=== PATIENT | male | born 1975 | race Two or more races ===

== ENCOUNTER 2019-10-22 23:37 | Emergency (ER) | payer OTHER ==
[~2019-10-22] VITALS: Ht 175.3 cm; Wt 84.4 kg
[2019-10-23 00:42] LABS: Basophils # (auto) 0 10 ^3/uL (0-0.2); Eosinophils # (auto) 0.1 10 ^3/uL (0-0.8); Eosinophils % (auto) 1.5 % (0.0-7.0); Hematocrit 42.9 % (41.0-53.0); Hemoglobin 14.2 g/dL (13.5-17.5); Lymphocytes # (auto) 0.5 10 ^3/uL (0.4-5.4); Lymphocytes % (auto) 14.1 % (10.0-50.0); Mean Corpuscular Hemoglobin 34.2 pg (28.0-32.0); Mean Corpuscular Hgb Conc. 33.2 g/dL (32.0-36.0); Mean Corpuscular Volume 103.1 fL (80.0-100.0); Monocytes # (auto) 0.6 10 ^3/uL (0-1.3); Monocytes % (auto) 17.5 % (0.0-12.0); Neutrophils # (auto) 2.3 10 ^3/uL (1.6-8.6); Neutrophils % (auto) 65.9 % (37.0-80.0); Nucleated Red Blood Cells % 0.1 %; Platelet Count (auto) 121 10^3/uL (140-450); Red Blood Cells 4.16 10^6/uL (4.5-5.90); White Blood Cell 3.5 10^3/uL (4.4-10.8)
[2019-10-23 01:00] LABS: Albumin 4.4 g/dL (3.4-5.0); Anion Gap 10 (5-15); BUN/Creatinine Ratio 14.6; Blood Alcohol < 3.0 mg/dL (0-5); Blood Urea Nitrogen 12 mg/dL (7-18); Calcium 8.6 mg/dL (8.5-10.1); Carbon Dioxide 25 mmol/L (21-32); Chloride 104 mmol/L (98-107); GFR African American 133 mL/min; GFR Non-African American 110 mL/min; Glucose 92 mg/dL (74-106); Potassium 3.8 mmol/L (3.5-5.1); Sodium 139 mmol/L (136-145)
[2019-10-23 01:03] LABS: Alanine Aminotransferase 282 U/L (16-61); Alkaline Phosphatase 78 U/L (45-117); Aspartate Aminotransferase 211 U/L (15-37); Bilirubin, Total 0.9 mg/dL (0.2-1.0); Total Protein 8.1 g/dL (6.4-8.2)
[2019-10-23] MEDS ORDERED: LORazepam 0.5 MG TAB PO ONE (02:45)
[2019-10-23 04:00] VITALS: BP 118/74
== END 2019-10-23 04:35 | disposition home or self-care (01) ==
LOC: ER 23:41
DX: F10.239 Alcohol dependence with withdrawal, unspecified (principal); K70.30 Alcoholic cirrhosis of liver without ascites; Z88.0 Allergy status to penicillin
CPT/HCPCS: 36415; 80053; 80320; 85025

== ENCOUNTER 2023-02-27 08:01 | Emergency (ER) | payer OTHER ==
[~2023-02-27] VITALS: Ht 175.3 cm; Wt 84.2 kg
[2023-02-27 08:47] VITALS: BP 146/70; PULSE 79; RESP 17; TEMP 97.6; O2SAT 97
[2023-02-27] MEDS ORDERED: CEPH500C PO (09:31)
[2023-02-27] MEDS ORDERED: TETANUS-DIPTH-ACEL PERTUSSIS 0.5ML SYR Tdap IM ONE (09:45)
== END 2023-02-27 09:44 | disposition home or self-care (01) ==
LOC: ER 08:01
DX: S01.01XA Laceration without foreign body of scalp, initial encounter (principal); R51.9 Headache, unspecified; Z88.0 Allergy status to penicillin; X58.XXXA Exposure to other specified factors, initial encounter; Y93.89 Activity, other specified; Y92.89 Other specified places as the place of occurrence of the external cause; Y99.8 Other external cause status
CPT/HCPCS: 12004; 70450; 90471; 90715

== ENCOUNTER 2023-03-09 07:02 | Emergency (ER) | payer OTHER ==
[~2023-03-09] VITALS: Ht 175.3 cm; Wt 83.6 kg
[~2023-03-09 07:02] MED LIST: CEPH500C PO
[2023-03-09 07:52] VITALS: BP 118/76; PULSE 64; RESP 64; TEMP 98.1; O2SAT 97
== END 2023-03-09 08:33 | disposition home or self-care (01) ==
LOC: ER 07:02
DX: S01.01XD Laceration without foreign body of scalp, subsequent encounter (principal); Z79.899 Other long term (current) drug therapy; Z88.0 Allergy status to penicillin; X58.XXXD Exposure to other specified factors, subsequent encounter

== ENCOUNTER 2023-08-13 07:03 | Emergency (ER) | payer OTHER ==
[~2023-08-13] VITALS: Ht 175.3 cm; Wt 88.6 kg
[2023-08-13 07:51] VITALS: BP 133/96; PULSE 70; RESP 19; TEMP 97.8; O2SAT 99
[2023-08-13] MEDS ORDERED: KETO2CRE4 TOP (07:56)
== END 2023-08-13 08:07 | disposition home or self-care (01) ==
LOC: ER 07:03
DX: B35.4 Tinea corporis (principal); Z88.0 Allergy status to penicillin

== ENCOUNTER 2024-02-18 19:46 | Emergency (ER) | payer OTHER ==
[~2024-02-18] VITALS: Ht 175.3 cm; Wt 88.0 kg
[~2024-02-18 19:46] MED LIST changes: +KETO2CRE4 TOP
[2024-02-18 20:12] VITALS: BP 149/99; PULSE 87; RESP 20; O2SAT 99
--- NOTE | 2024-02-18 21:08 | ED.PDOC ---
Back pain HPI HPI Comments 48y M who presents to the ED for chief compliant of lower back pain. Pt states he has been having lower back pain for the past 1 days. Pt states the pain is in his lower back, constant, non-radiating, with no associated exacerbating or relieving factors. Pt has no associated nausea,vomiting, diarrhea, dysuria, fever, chest pain or shortness of breath. Pt states he lifted couch on 2 days prior and states he has been having pain since. Pt otherwise denies any other symptoms at this time. Time Seen by MD: 21:03 Primary Care Provider: Unknown Reviewed Notes: Medications Allergies: Coded Allergies: Penicillins (Verified Allergy, Unknown, 10/23/19) Home Meds Active Scripts Ketoconazole (Ketoconazole) 2 % Cre, 1 APPLIC TOP BID, #30 GRAMS Prov:MAN FORMAN 08/13/23 Cephalexin Monohydrate (Cephalexin) 500 Mg Cap, 1 CAP PO QID, #32 CAP Prov:MAN FORMAN 02/27/23 Information Source: Patient Mode of Arrival: Ambulatory Brought in by: self Past Medical History PAST MEDICAL HISTORY: Denies Surgical History: Denies all surgeries Family History Family History: Reviewed,noncontributory to illness Social History Smoker: Non-Smoker Alcohol: Heavy Drugs: Denies Drug Use Lives In: Home Constitutional: denies: chills, diaphoresis, fatigue, fever, malaise, sweats, weakness, others EENTM: denies: blurred vision, double vision, ear bleeding, ear discharge, ear drainage, ear pain, ear ringing, eye pain, eye redness, hearing loss, mouth pain, mouth swelling, nasal discharge, nose bleeding, nose congestion, nose pain, photophobia, tearing, throat pain, throat swelling, voice changes, others Respiratory: denies: cough, hemoptysis, orthopnea, SOB at rest, shortness of breath, SOB with excertion, stridor, wheezing, others Cardiovascular: denies: chest pain, dizzy spells, diaphoresis, Dyspnea on exertion, edema, irregular heart beat, left arm pain, lightheadedness, palpitations, PND, syncope, others Gastrointestinal: denies: abdomen distended, abdominal pain, blood streaked bowels, constipated, diarrhea, dysphagia, difficulty swallowing, hematemesis, melena, nausea, poor appetite, poor fluid intake, rectal bleeding, rectal pain, vomiting, others Genitourinary: denies: burning, dysuria, flank pain, frequency, hematuria, incontinence, penile discharge, penile sore, pain, testicle pain, testicle swelling, urgency, others Neurological: denies: dizziness, fainting, headache, left sided numbness, left sided weakness, numbness, paresthesia, pre-existing deficit, right sided numbness, right sided weakness, seizure, speech problems, tingling, tremors, weakness, others Musculoskeletal: reports: back pain; denies: gout, joint pain, joint swelling, muscle pain, muscle stiffness, neck pain, others Integumetry: denies: bruises, change in color, change in hair/nails, dryness, laceration, lesions, lumps, rash, wounds, others Allergic/Immunocompromised: denies: Difficulty Healing, Frequent Infections, Hives, Itching, others Hematologic/Lymphatic: denies: anemia, blood clots, easy bleeding, easy bruising, swollen glands, others Endocrine: denies: excessive hunger, excessive sweating, excessive thirst, excessive urination, flushing, intolerance to cold, intolerance to heat, unexplained weight gain, unexplained weight loss, others Psychiatric: denies: anxiety, bipolar disorder, depression, hopeless, panic disorder, schizophrenia, sleepless, suicidal, others All Other Systems: Reviewed and Negative Physical Exam General Appearance: No Apparent Distress, Normal HEENT: Normal ENT Inspection, Pharynx Normal, TMs Normal Neck: Full Range of Motion, Non-Tender, Normal, Normal Inspection Respiratory: Chest Non-Tender, Lungs Clear, No Accessory Muscle Use, No Respiratory Distress, Normal Breath Sounds Cardiovascular: No Edema, No JVD, No Murmur, No Gallop, Normal Peripheral Pulses, Regular Rate/Rhythm Breast Exam: Deferred Gastrointestinal: No Organomegaly, Non Tender, No Pulsatile Mass, Normal Bowel Sounds, Soft Genitalia: Deferred Pelvic: Deferred Rectal: Deferred Extremities: Other (lower back point tenderness,L leg raise test does not improve symptoms) Musculoskeletal : Apperance: Normal Neurologic: Alert, [employer] II-XII nml as Tested, No Motor Deficits, Normal Affect, Normal Mood, No Sensory Deficits Cerebellar Function: Normal Reflexes: Normal Skin: Dry, Normal Color, Warm Lymphatic: No Adenopathy Was a procedure done? Was a procedure done?: No Back Pain Differential Dx Differential Diagnosis: Fracture, Musculoskeletal Pain, Pyelonephritis, Urolithiasis Other Differential Diagnosis lumbar radiculopathy lumbar strain, sciatica Time of 1ST Reevaluation: 21:35 Reevaluation 1ST: Unchanged Time of 2ND Reevaluation: 21:11 Reevaluation 2ND: Improved Patient Education/Counseling: Diagnosis, Treatment, Prognosis, Need For Follow Up Family Education/Counseling: No Family Present Departure 1 Departure Time of Disposition: 21:12 Impression: Primary Impression: Sciatica Qualified Codes: M54.32 - Sciatica, left side Disposition: HOME / SELF CARE / HOMELESS Condition: Good e-Prescriptions Ibuprofen Micronized (MOTRIN TABLET) 600 Mg Tb 600 MG PO TID PRN, #40 TAB *Black box warning-NSAIDS can increase risk of SC & hypertension, GI irritation, ulceration, bleed, perferation. Do not use post cardiac surgery. Use short duration/lowest effective dose. Prov: ALCIDES JOE MD 02/18/24 Cyclobenzaprine Hcl (Cyclobenzaprine Hcl) 10 Mg Tab 10 MG PO Q8HP PRN for 3 Days, #9 TAB Prov: ALCIDES JOE MD 02/18/24 Discharged With: Self Critical Care Note Critical Care Time?: No Stability Stability form required: No Heart Score Heart Score: Heart Score Response (Comments) Value History N/A 0 EKG N/A 0 Age N/A 0 Risk Factors N/A 0 Troponin N/A 0 Total 0 I personally scribed for ALCIDES JOE MD ([email or web address]) on 02/18/24 at 21:08. Electronically submitted by Carolina POTTER). ALCIDES JOE MD Feb 18, 2024 21:08
[2024-02-18] MEDS ORDERED: IBU600T PO (21:13)
[2024-02-18] MEDS ORDERED: CYCL-839 PO (21:13)
[2024-02-18] MEDS: KETOROLAC TROMETH 30 MG/ML 1ML VIAL IM ONE (22:31)
== END 2024-02-18 22:38 | disposition home or self-care (01) ==
LOC: ER 19:46
DX: M54.40 Lumbago with sciatica, unspecified side (principal); Z79.899 Other long term (current) drug therapy; Z88.0 Allergy status to penicillin
CPT/HCPCS: 96372; 99283; J1885

== ENCOUNTER 2024-09-14 18:36 | Emergency (ER) | payer OTHER ==
[~2024-09-14] VITALS: Ht 175.3 cm; Wt 85.4 kg
[~2024-09-14 18:36] MED LIST changes: +CYCL-839 PO; +IBU600T PO
[2024-09-14] MEDS: SODIUM CHLORIDE 0.9% 1,000 ML IVB ONE (19:45)
[2024-09-14] MEDS: LORazepam 2MG/ML-1ML VIAL IV ONE ×2 (19:46→19:47)
--- NOTE | 2024-09-14 19:48 | ED.PDOC ---
History of Present Illness HPI Comments 49 year old male with a Hx of Anxiety, and Heavy Alcohol Abuse was BIBA for the c/c of Alcohol Withdrawal symptoms. Pt states that his last drink was this past Wednesday, and has since had tremors with no alleviating factors at this time. Pt states that he is trying to quit after consistently having 6 hard liquor drinks daily for the past 17 years. Pt denies any ABD pain, CP, N/V/D, dizziness, or any other associated symptoms at this time. Chief Complaint: Withdrawal Time Seen by MD: 19:44 Primary Care Provider: ROWE Reviewed Notes: Nurses Notes, Medications, Allergies Allergies: Coded Allergies: Penicillins (Verified Allergy, Unknown, 10/23/19) Home Meds Active Scripts Multiple Vitamin (Multivitamins) Tab, 1 TAB PO DAILY for 90 Days, #90 TAB 3 Refills Prov:YANETH HERNANDEZ MD 09/14/24 Chlordiazepoxide Hcl (Librium) 25 Mg Cp, 25 MG GT Q6HP PRN, #30 CAP Prov:YANETH HERNANDEZ MD 09/14/24 Thiamine Hcl (VITAMIN B-1) 100 Mg Tb, 100 MG GT DAILY for 60 Days, #60 TAB Prov:YANETH HERNANDEZ MD 09/14/24 Ibuprofen Micronized (MOTRIN TABLET) 600 Mg Tb, 600 MG PO TID PRN, #40 TAB *Black box warning-NSAIDS can increase risk of IN & hypertension, GI irritation, ulceration, bleed, perferation. Do not use post cardiac surgery. Use short duration/lowest effective dose. Prov:ALCIDES JOE MD 02/18/24 Cyclobenzaprine Hcl (Cyclobenzaprine Hcl) 10 Mg Tab, 10 MG PO Q8HP PRN for 3 Days, #9 TAB Prov:ALCIDES JOE MD 02/18/24 Ketoconazole (Ketoconazole) 2 % Cre, 1 APPLIC TOP BID, #30 GRAMS Prov:MAN FORMAN 08/13/23 Cephalexin Monohydrate (Cephalexin) 500 Mg Cap, 1 CAP PO QID, #32 CAP Prov:MAN FORMAN 02/27/23 Information Source: Patient Mode of Arrival: Ambulatory Severity: Moderate Timing: Days Duration: Since onset, Days Prehospital treatment: None Past Medical History PAST MEDICAL HISTORY: Denies Surgical History: Denies all surgeries Family History Family History: Reviewed,noncontributory to illness Social History Smoker: Non-Smoker Alcohol: Heavy Drugs: Denies Drug Use Lives In: Home Constitutional: denies: chills, diaphoresis, fatigue, fever, malaise, sweats, weakness, others EENTM: denies: blurred vision, double vision, ear bleeding, ear discharge, ear drainage, ear pain, ear ringing, eye pain, eye redness, hearing loss, mouth pain, mouth swelling, nasal discharge, nose bleeding, nose congestion, nose pain, photophobia, tearing, throat pain, throat swelling, voice changes, others Respiratory: denies: cough, hemoptysis, orthopnea, SOB at rest, shortness of breath, SOB with excertion, stridor, wheezing, others Cardiovascular: denies: chest pain, dizzy spells, diaphoresis, Dyspnea on exertion, edema, irregular heart beat, left arm pain, lightheadedness, palpitations, PND, syncope, others Gastrointestinal: denies: abdomen distended, abdominal pain, blood streaked bowels, constipated, diarrhea, dysphagia, difficulty swallowing, hematemesis, melena, nausea, poor appetite, poor fluid intake, rectal bleeding, rectal pain, vomiting, others Genitourinary: denies: burning, dysuria, flank pain, frequency, hematuria, incontinence, penile discharge, penile sore, pain, testicle pain, testicle swelling, urgency, others Neurological: denies: dizziness, fainting, headache, left sided numbness, left sided weakness, numbness, paresthesia, pre-existing deficit, right sided numbness, right sided weakness, seizure, speech problems, tingling, tremors, wea kness, others Musculoskeletal: denies: back pain, gout, joint pain, joint swelling, muscle pain, muscle stiffness, neck pain, others Integumetry: denies: bruises, change in color, change in hair/nails, dryness, l aceration, lesions, lumps, rash, wounds, others Allergic/Immunocompromised: denies: Difficulty Healing, Frequent Infections, Hives, Itching, others Hematologic/Lymphatic: denies: anemia, blood clots, easy bleeding, easy bruising, swollen glands, others Endocrine: denies: excessive hunger, excessive sweating, excessive thirst, excessive urination, flushing, intolerance to cold, intolerance to heat, unexplained weight gain, unexplained weight loss, others Psychiatric: reports: anxiety; denies: bipolar disorder, depression, hopeless, panic disorder, schizophrenia, sleepless, suicidal, others All Other Systems: Reviewed and Negative Physical Exam General Appearance: Moderate Distress, Normal, Obese, Other (Tremors noted) HEENT: Normal ENT Inspection, Pharynx Normal, TMs Normal Neck: Full Range of Motion, Non-Tender, Normal, Normal Inspection Respiratory: Chest Non-Tender, Lungs Clear, No Accessory Muscle Use, No Respiratory Distress, Normal Breath Sounds Cardiovascular: No Edema, No JVD, No Murmur, No Gallop, Normal Peripheral Pulses, Regular Rate/Rhythm Breast Exam: Deferred Gastrointestinal: No Organomegaly, Non Tender, No Pulsatile Mass, Normal Bowel Sounds, Soft Genitalia: Deferred Pelvic: Deferred Rectal: Deferred Extremities: No calf tenderness, Normal capillary refill, Normal inspection, Normal range of motion, Non-tender, No pedal edema Musculoskeletal : Apperance: Normal Neurologic: Alert, No Motor Deficits, Normal Affect, Normal Mood, No Sensory Deficits Cerebellar Function: Normal Reflexes: Normal Skin: Dry, Normal Color, Warm Lymphatic: No Adenopathy Was a procedure done? Was a procedure done?: No Differential Dx Considerations may include: Differential diagnosis includes but is not limited to: coronary ischemia, dehydration, sepsis, electrolyte abnormality, symptomatic anemia, hypovolemia and others X-Ray, Labs, Meds, VS Vital Signs Date Time Temp Pulse Resp B/P (MAP) Pulse Ox O2 Delivery O2 Flow Rate FiO2 09/14/24 20:00 97.9 96 14 135/101 (112) 94 97.9 09/14/24 19:30 Room Air* 0 21 09/14/24 18:37 99.0 60 20 152/109 (123) 96 99.0 Lab Test 09/14/24 19:47 Range/Units White Blood Count 5.3 4.4-10.8 10^3/uL Red Blood Count 4.32 L 4.5-5.90 10^6/uL Hemoglobin 15.6 13.5-17.5 g/dL Hematocrit 44.7 41.0-53.0 % Mean Corpuscular Volume 103.4 H 80.0-100.0 fL Mean Corpuscular Hemoglobin 36.2 H 28.0-32.0 pg Mean Corpuscular Hemoglobin Concent 35.0 32.0-36.0 g/dL Red Cell Distribution Width 13.7 11.8-14.3 % Platelet Count 76 L 140-450 10^3/uL Mean Platelet Volume 8.6 6.9-10.8 fL Neutrophils (%) (Auto) 37.0-80.0 % Lymphocytes (%) (Auto) 10.0-50.0 % Monocytes (%) (Auto) 0.0-12.0 % Basophils (%) (Auto) 0.0-2.0 % Neutrophils # (Auto) 1.6-8.6 10 ^3/uL Lymphocytes # (Auto) 0.4-5.4 10 ^3/uL Monocytes # (Auto) 0-1.3 10 ^3/uL Differential Total Cells Counted 100.0 100 Neutrophils % (Manual) 70 37.0-80.0 Band Neutrophils % (Manual) 0 Lymphocytes % (Manual) 14 10.0-50.0 Monocytes % (Manual) 16 H 0-12 Eosinophils % (Manual) 0 0-7 Basophils % (Manual) 0 0.0-2.0 Metamyelocytes % (manual) 0 Myelocytes % (Manual) 0 Promyelocytes % (Manual) 0 Blast Cells % (Manual) 0 Reactive Lymphocytes 0 Platelet Estimate Decreased Macrocytosis Slight Stomatocytes Few Prothrombin Time 12.1 H 9.3-11.8 sec Prothrombin Time INR 1.16 H 0.9-1.15 Activated Partial Thromboplast Time 28.8 24.5-34.5 SEC Sodium Level 139 136-145 mmol/L Potassium Level 2.9 L 3.5-5.1 mmol/L Chloride Level 100 98-107 mmol/L Carbon Dioxide Level 22 20-31 mmol/L Anion Gap 17 H 5-15 Blood Urea Nitrogen 28 H 9-23 mg/dL Creatinine 1.30 0.700-1.30 mg/dL Glomerular Filtration Rate Calc 68 >90 mL/min BUN/Creatinine Ratio 21.5 H 10.0-20.0 Serum Glucose 74 74-106 mg/dL Calcium Level 10.6 H 8.7-10.4 mg/dL Magnesium Level 1.8 1.6-2.6 mg/dL Total Bilirubin 1.3 H 0.2-1.0 mg/dL Aspartate Amino Transferase (AST) 144 H 13-40 U/L Alanine Aminotransferase (ALT) 82 H 7-40 U/L Alkaline Phosphatase 65 46-116 U/L Total Protein 8.8 H 5.7-8.2 g/dL Albumin 5.6 H 3.2-4.8 g/dL Plasma/Serum Blood Alcohol < 3.0 <10 mg/dL Current Medications Medications (Trade) Dose Ordered Sig/Gloria Route Start Time Stop Time Status Last Admin Sodium Chloride 1,000 ml @ 1,000 mls/hr Q1H ONCE IVB 09/14/24 19:30 09/14/24 20:29 DC 09/14/24 19:45 Lorazepam (Ativan Inj) 2 mg ONCE ONCE IV 09/14/24 19:45 09/14/24 19:46 DC 09/14/24 19:47 Time of 1ST Reevaluation: 20:14 Reevaluation 1ST: Unchanged Patient Education/Counseling: Diagnosis, Treatment, Need For Follow Up Family Education/Counseling: No Family Present SEPSIS Sepsis Screen Date sepsis recognized/suspect: Sep 14, 2024 Time Sepsis recognized/suspect: 1916 Recent Procedure: No On Antibiotic Therapy: No Respiratory Rate >20: No Heart Rate >90: No Temp<36 C (96.8 F) or >38.3 C: No SBP <90 or MAP <65 mmHG: No New Acute Mental Status Change: No Is the patient on CPAP, BIPAP,: No Vital Signs Date Time Temp Pulse Resp B/P (MAP) Pulse Ox O2 Delivery O2 Flow Rate FiO2 09/14/24 20:00 97.9 96 14 135/101 (112) 94 97.9 09/14/24 19:30 Room Air* 0 21 09/14/24 18:37 99.0 60 20 152/109 (123) 96 99.0 Laboratory Tests Test 09/14/24 19:47 White Blood Count 5.3 10^3/uL (4.4-10.8) Medications Medications Dose Ordered Sig/Gloria Route Start Time Stop Time Status Last Admin Dose Admin Lorazepam 2 mg ONCE ONCE IV 09/14/24 19:45 09/14/24 19:46 DC 09/14/24 19:47 Sodium Chloride 1,000 ml @ 1,000 mls/hr Q1H ONCE IVB 7/24/25 19:30 09/14/24 20:29 DC 09/14/24 19:45 Departure 1 Departure Time of Disposition: 22:15 Impression: Primary Impression: Alcohol abuse Additional Impression: Alcohol withdrawal Disposition: HOME / SELF CARE / HOMELESS Condition: Stable e-Prescriptions Multiple Vitamin (Multivitamins) Tab 1 TAB PO DAILY for 90 Days, #90 TAB 3 Refills Prov: YANETH HERNANDEZ MD 09/14/24 Chlordiazepoxide Hcl (Librium) 25 Mg Cp 25 MG GT Q6HP PRN, #30 CAP Prov: YANETH HERNANDEZ MD 09/14/24 Thiamine Hcl (VITAMIN B-1) 100 Mg Tb 100 MG GT DAILY for 60 Days, #60 TAB Prov: YANETH HERNANDEZ MD 09/14/24 Discharged With: Self Critical Care Note Critical Care Time?: No Stability Stability form required: No Heart Score Heart Score: Heart Score Response (Comments) Value History N/A 0 EKG N/A 0 Age N/A 0 Risk Factors N/A 0 Troponin N/A 0 Total 0 I personally scribed for YANETH HERNANDEZ MD ([email or web address]) on 09/14/24 at 19:48. Electronically submitted by Jimmy Licea ([email or web address]). YANETH HERNANDEZ MD Sep 14, 2024 19:48
[2024-09-14 20:00] VITALS: BP 135/101; PULSE 96; RESP 14; TEMP 97.9; O2SAT 94
[2024-09-14 20:05] LABS: Hemoglobin 15.6 g/dL (13.5-17.5)
[2024-09-14 20:07] LABS: Hematocrit 44.7 % (41.0-53.0); Mean Corpuscular Hemoglobin 36.2 pg (28.0-32.0); Mean Corpuscular Volume 103.4 fL (80.0-100.0)
[2024-09-14 20:20] LABS: INR 1.16 (0.9-1.15); Partial Thromboplastin Time 28.8 SEC (24.5-34.5); Prothrombin Time 12.1 sec (9.3-11.8)
[2024-09-14 20:23] LABS: Alanine Aminotransferase 82 U/L (7-40); Albumin 5.6 g/dL (3.2-4.8); Alkaline Phosphatase 65 U/L (46-116); Anion Gap 17 (5-15); BUN/Creatinine Ratio 21.5 (10.0-20.0); Bilirubin, Total 1.3 mg/dL (0.2-1.0); Blood Urea Nitrogen 28 mg/dL (9-23); Calcium 10.6 mg/dL (8.7-10.4); Carbon Dioxide 22 mmol/L (20-31); Chloride 100 mmol/L (98-107); Glucose 74 mg/dL (74-106); Magnesium 1.8 mg/dL (1.6-2.6); Potassium 2.9 mmol/L (3.5-5.1); Sodium 139 mmol/L (136-145); Total Protein 8.8 g/dL (5.7-8.2)
[2024-09-14] MEDS ORDERED: MULT-1018 PO (20:59)
[2024-09-14] MEDS ORDERED: CHL25C GT (20:59)
[2024-09-14] MEDS ORDERED: THIA100T10 GT (20:59)
[2024-09-14 21:23] LABS: Macrocytosis Slight; Stomatocytes Few; Total Cells Counted 100.0 (100)
== END 2024-09-14 21:15 | disposition home or self-care (01) ==
LOC: ER 18:36
DX: F10.239 Alcohol dependence with withdrawal, unspecified (principal); F41.9 Anxiety disorder, unspecified; R06.02 Shortness of breath; Z88.0 Allergy status to penicillin; Z79.899 Other long term (current) drug therapy; Y90.9 Presence of alcohol in blood, level not specified
CPT/HCPCS: 36415; 80053; 80320; 83735; 85007; 85027; 85610; 85730; 96361; 96374; 99283; J2060; J7030

== ENCOUNTER 2025-02-18 06:36 | Emergency (ER) | payer OTHER ==
[~2025-02-18] VITALS: Ht 175.3 cm; Wt 86.7 kg
[~2025-02-18 06:36] MED LIST changes: +CHL25C GT; +MULT-1018 PO; +THIA100T10 GT
--- NOTE | 2025-02-18 06:43 | ED.PDOC ---
SOB-HPI HPI Comments 49-year-old male patient presents to the emergency room for a cough and right ear pain. Patient has a reported allergy to penicillins. Patient states that the cough and sore started about 10 days ago. Patient has been taking DayQuil, and [place] cold medicine at night and drinking an herbal tea. Patient states that the symptoms have been under control but have remained the same. Patient denies any fevers. Patient denies any shortness of breath. Patient denies any history of smoking, asthma or other respiratory illnesses. Chief Complaint: Cough Time Seen by MD: 06:40 Primary Care Provider: ROWE Reviewed notes: Nurses Notes, Medications, Allergies Information Source: Patient Mode of Arrival: Ambulatory Severity: Mild Timing: Days Duration: Days Associated Signs and Symptoms: Cough, Sore Throat Past Medical History PAST MEDICAL HISTORY: Denies Surgical History: Denies all surgeries Family History Family History: Reviewed,noncontributory to illness Social History Smoker: Non-Smoker Alcohol: Heavy Drugs: Denies Drug Use Lives In: Home Constitutional: denies: chills, diaphoresis, fatigue, fever, malaise, sweats, weakness, others EENTM: reports: ear pain (Pressure in right ear when coughing) Respiratory: reports: cough Cardiovascular: denies: chest pain, dizzy spells, diaphoresis, Dyspnea on exertion, edema, irregular heart beat, left arm pain, lightheadedness, palpitations, PND, syncope, others Gastrointestinal: denies: abdomen distended, abdominal pain, blood streaked bowels, constipated, diarrhea, dysphagia, difficulty swallowing, hematemesis, melena, nausea, poor appetite, poor fluid intake, rectal bleeding, rectal pain, vomiting, others Genitourinary: denies: burning, dysuria, flank pain, frequency, hematuria, incontinence, penile discharge, penile sore, pain, testicle pain, testicle swelling, urgency, others Neurological: denies: dizziness, fainting, headache, left sided numbness, left sided weakness, numbness, paresthesia, pre-existing deficit, right sided numbness, right sided weakness, seizure, speech problems, tingling, tremors, weakness, others Musculoskeletal: denies: back pain, gout, joint pain, joint swelling, muscle pain, muscle stiffness, neck pain, others Integumetry: denies: bruises, change in color, change in hair/nails, dryness, laceration, lesions, lumps, rash, wounds, others Allergic/Immunocompromised: denies: Difficulty Healing, Frequent Infections, Hives, Itching, others Hematologic/Lymphatic: denies: anemia, blood clots, easy bleeding, easy bruising, swollen glands, others Endocrine: denies: excessive hunger, excessive sweating, excessive thirst, excessive urination, flushing, intolerance to cold, intolerance to heat, une xplained weight gain, unexplained weight loss, others Psychiatric: denies: anxiety, bipolar disorder, depression, hopeless, panic disorder, schizophrenia, sleepless, suicidal, others All Other Systems: Reviewed and Negative Physical Exam Exam Comments Patient is alert oriented. Patient is ambulatory. Patient speaks in full sentences. No shortness of breath noted. General Appearance: Normal HEENT: Normal ENT Inspection, Pharynx Normal, TMs Normal Neck: Full Range of Motion, Non-Tender, Normal, Normal Inspection Respiratory: Rhonchi (Mild rhonchi) Cardiovascular: No Edema, No JVD, No Murmur, No Gallop, Normal Peripheral Pulses, Regular Rate/Rhythm Breast Exam: Deferred Gastrointestinal: No Organomegaly, Non Tender, No Pulsatile Mass, Normal Bowel Sounds, Soft Genitalia: Deferred Pelvic: Deferred Rectal: Deferred Extremities: No calf tenderness, Normal capillary refill, Normal inspection, Normal range of motion, Non-tender, No pedal edema Neurologic: Alert, supervisor claims II-XII nml as Tested, No Motor Deficits, Normal Affect, Normal Mood, No Sensory Deficits Cerebellar Function: Normal Reflexes: NOT DONE Skin: Dry, Normal Color, Warm Lymphatic: Cervical Adenopathy (L), Cervical Adenopathy (R) Was a procedure done? Was a procedure done?: No Differential Dx Differential Diagnosis: Bronchitis, Pneumonia, Sinusitis, Otitis Media, Pharyngitis, URI X-Ray, Labs, Meds, VS Vital Signs Date Time Temp Pulse Resp B/P (MAP) Pulse Ox O2 Delivery O2 Flow Rate FiO2 02/18/25 06:38 97.7 77 16 149/104 98 97.7 X-Ray, Labs, Meds, VS Comment On re-evaluation patient has symptomatic improvement. Patient is stable for discharge at this time. All test results and diagnostic imaging have been interpreted. All diagnostic findings, discharge care, and education instruction provided to the patient. Follow-up with PCP in 2-3 days Patient verbalized understanding, discharge instructions and agrees to treatment plan Vital signs are stable Patient is ambulatory Patient advised of which symptoms necessitate a return visit to the emergency room. Patient to return emergency room for any new worsening symptoms. Patient is aware that the purpose of this visit is for an acute medical emergency requiring emergent stabilization. Chronic conditions, including malignancies have not been ruled out. Patient is instructed to follow up with PCP as directed for continued care and workup. If unable to arrange follow up, patient is to return to the emergency room for reassessment. Patient was given verbal and written discharge instructions and acknowledges understanding Time of 1ST Reevaluation: 06:52 Reevaluation 1ST: Unchanged Time of 2ND Reevaluation: 07:07 Reevaluation 2ND: Improved (Blood pressure rechecked and 126/72) Patient Education/Counseling: Diagnosis, Treatment, Prognosis Family Education/Counseling: No Family Present SEPSIS Sepsis Screen Date sepsis recognized/suspect: Feb 18, 2025 Time Sepsis recognized/suspect: 637 Recent Procedure: No On Antibiotic Therapy: No Respiratory Rate >20: No Heart Rate >90: No Temp<36 C (96.8 F) or >38.3 C: No SBP <90 or MAP <65 mmHG: No New Acute Mental Status Change: No Is the patient on CPAP, BIPAP,: No Vital Signs Date Time Temp Pulse Resp B/P (MAP) Pulse Ox O2 Delivery O2 Flow Rate FiO2 02/18/25 06:38 97.7 77 16 149/104 98 97.7 Departure 1 Departure Time of Disposition: 06:57 Impression: Primary Impression: Upper respiratory infection Qualified Codes: J06.9 - Acute upper respiratory infection, unspecified Additional Impressions: Acute pharyngitis Qualified Codes: J02.9 - Acute pharyngitis, unspecified Sinus congestion Disposition: 01 HOME / SELF CARE / HOMELESS Condition: Good e-Prescriptions Benzocaine-Menthol (Mouth-Thro (Cepacol Sore Throat Extra 15-3.6 mg) 1 Yazan Yazan 1 YAZAN MT Q2HP PRN for 5 Days, #60 YAZAN 0 Refills Prov: DAINAPRAKASH MAIL TECHNICIAN 02/18/25 Yswwdifldol-Nimpvspx-Tl (Bromphen/Pseudoephedrine 30-2-10 mg/5Ml) 1 Syp Syp 10 ML PO Q4HP PRN for 7 Days, #420 ML 0 Refills Prov: PRAKASH [facility] 02/18/25 Azithromycin (ZITHROMAX TABLET) 250 Mg Tb 250 MG PO DAILY for 5 Days, #6 TAB 0 Refills Patient to take 2 tablets on day 1 and 1 tablet on days 2 through 5 Prov: PRAKASH L[facility] 02/18/25 Ibuprofen (Ibuprofen) 600 Mg Tab 1 TAB PO TID PRN for 14 Days, #42 TAB 0 Refills Prov: PRAKASH LAMA [facility] 02/18/25 Discharged With: Self Critical Care Note Critical Care Time?: No Stability Stability form required: No Heart Score Heart Score: Heart Score Response (Comments) Value History N/A 0 EKG N/A 0 Age N/A 0 Risk Factors N/A 0 Troponin N/A 0 Total 0 PRAKASH LAMA [facility] Feb 18, 2025 06:43
[2025-02-18] MEDS ORDERED: IBUP-1454 PO (06:56)
[2025-02-18] MEDS ORDERED: PSEU1SYP6 PO (06:56)
[2025-02-18] MEDS ORDERED: BENZ1LOZ3 MT (06:56)
[2025-02-18] MEDS ORDERED: AZIT-185 PO (06:56)
[2025-02-18 07:35] VITALS: BP 125/81; PULSE 62; RESP 18; TEMP 98.4; O2SAT 98
== END 2025-02-18 07:37 | disposition home or self-care (01) ==
LOC: ER 06:36
DX: J02.9 Acute pharyngitis, unspecified (principal); R09.81 Nasal congestion; F10.90 Alcohol use, unspecified, uncomplicated; Z88.0 Allergy status to penicillin